=== PATIENT | male | born 2000 | race Caucasian/White ===

== ENCOUNTER 2025-04-16 17:31 | Emergency (ER) | payer OTHER ==
[~2025-04-16] VITALS: Ht 172.7 cm; Wt 63.5 kg
[2025-04-16] MEDS ORDERED: Amoxicillin/Clavulanate Pota 875 MG TAB PO ONE (17:55)
[2025-04-16] MEDS ORDERED: AMOX-CLAV 875-1 EACH PO (17:55)
== END 2025-04-16 18:04 | disposition home or self-care (01) ==
LOC: ED 17:31
DX: J02.0 Streptococcal pharyngitis (principal); R04.0 Epistaxis